=== PATIENT | female | born 1945 | race Caucasian/White ===

== ENCOUNTER 2016-09-04 08:01 | Outpatient (CLI) | payer MEDICARE, OTHER | END 2016-09-04 08:02 | disposition home or self-care (01) | DX: Z12.31 Encounter for screening mammogram for malignant neoplasm of breast (principal); R73.01 Impaired fasting glucose; E78.2 Mixed hyperlipidemia; E83.52 Hypercalcemia; E03.9 Hypothyroidism, unspecified | CPT/HCPCS: 36415; 80053; 80061; 83036; 83970; 84436; 84439; 84443; 85025; G0202 ==

== ENCOUNTER 2016-09-05 08:00 | Outpatient (CLI) | payer MEDICARE, OTHER | END 2016-09-05 23:59 | disposition home or self-care (01) | DX: E78.2 Mixed hyperlipidemia (principal); R73.01 Impaired fasting glucose; E83.52 Hypercalcemia; E03.9 Hypothyroidism, unspecified ==

== ENCOUNTER 2017-09-15 08:06 | Outpatient (CLI) | payer MEDICARE, OTHER ==
[2017-09-15 08:45] LABS: HEMOGLOBIN A1C 0.62 g/dL; HEMOGLOBIN A1C % 6.2 % (4.6-6.2)
[2017-09-15 09:08] LABS: ALBUMIN 4.5 g/dL (3.2-5.5); ALBUMIN/GLOBULIN RATIO 1.3 (1.0-2.2); ALKALINE PHOSPHATASE 41 IU/L (42-121); ALT ALANINE AMINOTRANSFERASE 31 IU/L (10-60); AST ASPARTATE AMINOTRANSFERASE 29 IU/L (10-42); BILIRUBIN,TOTAL 0.7 mg/dL (0.2-1.0); BUN - BLOOD UREA NITROGEN 15 mg/dL (6-20); CALCIUM 9.4 mg/dL (8.5-10.3); CARBON DIOXIDE - CO2 27 mmol/L (21-32); CHLORIDE 100 mmol/L (101-111); CHOL/HDL RATIO 3.4 (<4.4); CHOLESTEROL 163 mg/dL; CREATININE 0.9 mg/dL (0.4-1.0); GFR - MDRD 61 (>89); GLUCOSE 106 mg/dL (70-100); HDL CHOLESTEROL 48 mg/dL; LDL CHOLESTEROL,CALCULATED 43 mg/dL; LDL/HDL RATIO 0.9 (<4.4); SODIUM 136 mmol/L (135-145); TOTAL PROTEIN 7.9 g/dL (6.7-8.2); VLDL CHOLESTEROL 72 mg/dL
== END 2017-09-15 08:07 | disposition home or self-care (01) ==
LOC: LAB 08:06
PROVIDERS: ATTEND Physician Assistant
DX: Z79.899 Other long term (current) drug therapy (principal); N18.2 Chronic kidney disease, stage 2 (mild); E78.2 Mixed hyperlipidemia; R73.01 Impaired fasting glucose; E03.9 Hypothyroidism, unspecified
CPT/HCPCS: 36415; 80053; 80061; 83036; 83721; 84443

== ENCOUNTER 2017-10-08 11:38 | Outpatient (CLI) | payer MEDICARE, OTHER ==
--- NOTE | 2017-10-09 09:30 | Mammography Report ---
DIGITAL SCREENING MAMMOGRAM: 10/08/2017 HISTORY: Prior history of benign biopsy. TECHNIQUE: Bilateral digital CC and MLO projections. COMPARISON: 09/04/2016, 02/21/2014, 03/15/2012, 02/25/2012, 02/19/2011 and . FINDINGS: There is extensive fatty replacement of the breast tissue. There is a tiny asymmetric density in the 3 o'clock position of the left breast and in the 10 o' clock position of the right breast, which are gradually more apparent over a series of mammograms. While these may represent a superimposition of structures, further evaluation with bilateral spot compression and true lateral views is suggested with possible ultrasound as needed. No suspicious microcalcifications, architectural distortion, skin thickening or other interval change. IMPRESSION: SUGGEST FURTHER EVALUATION OF EACH BREAST FOR FAINT NODULAR DENSITIES. BI-RADS 0-INCOMPLETE. STANDARD QUALIFYING STATEMENTS: 1. This examination was reviewed with the aid of Computer-Aided Detection (CAD) . 2. A negative or benign imaging report should not delay biopsy if clinically suspicious findings are present. Consider surgical consultation if warranted. More than 5 % of cancers are not identified by imaging. 3. Dense breasts may obscure an underlying neoplasm. TD: 10/09/2017 09:28 KATERIN
== END 2017-10-08 11:39 | disposition home or self-care (01) ==
LOC: DI 11:38
PROVIDERS: ATTEND Physician Assistant
DX: Z12.31 Encounter for screening mammogram for malignant neoplasm of breast (principal); R92.8 Other abnormal and inconclusive findings on diagnostic imaging of breast
CPT/HCPCS: 77067

== ENCOUNTER 2017-10-28 08:56 | Outpatient (CLI) | payer MEDICARE, OTHER ==
--- NOTE | 2017-10-28 14:12 | Ultrasound Report ---
LEFT BREAST ULTRASOUND: 10/28/2017 CLINICAL INDICATION: Possible nodule on diagnostic mammogram. FINDINGS: Ultrasound of the outer left breast was performed. Unremarkable parenchymal lobules are seen. No discrete solid or cystic mass is appreciated. No sonographically suspicious findings are present. IMPRESSION: NEGATIVE EXAMINATION. RECOMMENDATION: Routine annual screening unless otherwise clinically indicated. BIRADS CATEGORY 1-NEGATIVE. TD: 10/28/2017 14:11
--- NOTE | 2017-10-28 14:23 | Mammography Report ---
DIAGNOSTIC DIGITAL BILATERAL MAMMOGRAM: 10/28/2017. CLINICAL INDICATION: Possible nodules on screening. TECHNIQUE: Bilateral true lateral and spot compression views. COMPARISON: 10/08/2017, 09/04/2016, 02/21/2014, 03/15/2012, 02/25/2012, 2010, 12/24/2009. FINDINGS: The breasts again demonstrate fatty replacement bilaterally. Punctate, typically benign calcifications are present. The density originally seen in the right breast dissipates completely on additional compression. The density in the left breast, partially dissipates on additional compression. Please also refer to left breast ultrasound of the same day. IMPRESSION: BENIGN FINDINGS. RECOMMENDATION: Routine annual screening unless otherwise clinically indicated. BIRADS CATEGORY 2 - BENIGN FINDINGS. STANDARD QUALIFYING STATEMENTS 1. This examination was reviewed with the aid of Computed Aided Detection (CAD). 2. A negative x-ray report should not delay biopsy if a dominant or clinically suspicious mass is present. More than 5% of cancers are not identified by x-ray. 3. Dense breasts may obscure an underlying neoplasm. TD: 10/28/2017 14:22 KATERIN
== END 2017-10-28 08:57 | disposition home or self-care (01) ==
LOC: DI 08:56
PROVIDERS: ATTEND Physician Assistant
DX: R92.8 Other abnormal and inconclusive findings on diagnostic imaging of breast (principal)
CPT/HCPCS: 76642; 77066

== ENCOUNTER 2018-10-29 07:50 | Outpatient (CLI) | payer MEDICARE, OTHER ==
[2018-10-29 08:19] LABS: ALBUMIN 4.2 g/dL (3.2-5.5); ALKALINE PHOSPHATASE 38 IU/L (42-121); ALT ALANINE AMINOTRANSFERASE 22 IU/L (10-60); AST ASPARTATE AMINOTRANSFERASE 24 IU/L (10-42); BILIRUBIN,TOTAL 0.7 mg/dL (0.2-1.0); BUN - BLOOD UREA NITROGEN 18 mg/dL (6-20); CALCIUM 9.3 mg/dL (8.5-10.3); CARBON DIOXIDE - CO2 28 mmol/L (21-32); CHLORIDE 99 mmol/L (101-111); CHOL/HDL RATIO 2.9 (<4.4); CHOLESTEROL 143 mg/dL; CK- CREATINE KINASE 87 IU/L (22-269); CREATININE 0.9 mg/dL (0.4-1.0); GFR - MDRD 61 (>89); GLUCOSE 108 mg/dL (70-100); HDL CHOLESTEROL 50 mg/dL; LDL CHOLESTEROL,CALCULATED 32 mg/dL; LDL/HDL RATIO 0.6 (<4.4); SODIUM 135 mmol/L (135-145); TOTAL PROTEIN 8.4 g/dL (6.7-8.2); VLDL CHOLESTEROL 61 mg/dL
[2018-10-29 08:38] LABS: BASOPHILS # (AUTO) 0.1 10^3/uL (0.0-0.1); EOSINOPHILS # (AUTO) 0.3 10^3/uL (0.0-0.7); HGB - HEMOGLOBIN 12.3 g/dL (12.0-16.0); LYMPHOCYTES % (AUTO) 37.7 %; MEAN CORPUSCULAR HEMOGLOBIN 31.6 pg (27.0-31.0); MEAN CORPUSCULAR HGB CONC 33.1 g/dL (32.0-36.0); MEAN CORPUSCULAR VOLUME 95.5 fL (81.0-99.0); MEAN PLATELET VOLUME 9.7 fL (7.9-10.8); MONOCYTES # (AUTO) 0.5 10^3/uL (0.0-1.0); MONOCYTES % (AUTO) 8.5 %; NEUTROPHILS # (AUTO) 2.6 10^3/uL (1.5-6.6); NEUTROPHILS % (AUTO) 47.8 %; PLT - PLATELET COUNT 211 10^3/uL (130-450); RED CELL DISTRIBUTION WIDTH 12.9 % (12.0-15.0); WHITE BLOOD COUNT 5.4 x10^3/uL (4.8-10.8)
[2018-10-29 13:13] LABS: BILIRUBIN,URINE NEGATIVE (NEGATIVE); GLUCOSE, URINE (UA) NEGATIVE (NEGATIVE); KETONES,URINE (UA) NEGATIVE (NEGATIVE); LEUKOCYTE ESTERASE, URINE NEGATIVE (NEGATIVE); NITRITE,URINE NEGATIVE (NEGATIVE); OCCULT BLOOD,URINE NEGATIVE (NEGATIVE); PROTEIN,URINE NEGATIVE (NEGATIVE); UROBILINOGEN,URINE 0.2 (NORMAL) E.U./dL (NORMAL)
[2018-10-29 13:16] LABS: CLARITY,URINE CLEAR (CLEAR)
[2018-11-01 07:28] LABS: HEMOGLOBIN A1C 0.55 g/dL
== END 2018-10-29 07:51 | disposition home or self-care (01) ==
LOC: LAB 07:50
PROVIDERS: ATTEND Internal Medicine
DX: C44.90 Unspecified malignant neoplasm of skin, unspecified (principal); R73.01 Impaired fasting glucose; K21.9 Gastro-esophageal reflux disease without esophagitis; Z79.899 Other long term (current) drug therapy; J45.909 Unspecified asthma, uncomplicated; I10 Essential (primary) hypertension; E78.5 Hyperlipidemia, unspecified; E03.9 Hypothyroidism, unspecified
CPT/HCPCS: 36415; 80053; 80061; 81001; 81003; 82550; 83036; 83721; 84443; 85025; 87086

== ENCOUNTER 2018-11-26 13:09 | Outpatient (CLI) | payer MEDICARE, OTHER ==
--- NOTE | 2018-11-30 14:09 | Mammography Report ---
Reason: SCREENING MAMMO Procedure Date: 11/26/2018 Accession Number: [id number] / [id number] Procedure: [facility] - Screening Mammo w/Juan Antonio CPT Code: FULL RESULT: EXAM: Screening Mammo w/Juan Antonio DATE: 11/26/2018 1:59 PM CLINICAL HISTORY: Screening mammography TECHNIQUE: (B) - Bilateral CC and MLO views were obtained. COMPARISON: 10/28/2017, 10/08/2017, 09/04/2016, 02/21/2014 and 02/25/2012. PARENCHYMAL PATTERN: (A) - The breasts demonstrate scattered fibroglandular densities bilaterally. FINDINGS: Nodular densities in both breasts are similar to previous. There are no suspicious masses, calcifications, or areas of distortion. IMPRESSION: Negative examination. BI-RADS category 1. RECOMMENDATION: (ANNUAL) - Recommend routine annual screening mammography. BI-RADS CATEGORY: (1) - Negative. STANDARD QUALIFYING STATEMENTS: 1. This examination was not reviewed with the aid of Computer-Aided Detection (CAD). 2. A negative or benign imaging report should not preclude biopsy if clinically suspicious findings are present. 3. Dense breasts may obscure an underlying neoplasm. 4. This examination was reviewed with the aid of 3D breast imaging (tomosynthesis).
== END 2018-11-26 13:10 | disposition home or self-care (01) ==
LOC: DI 13:09
PROVIDERS: ATTEND Internal Medicine
DX: Z12.31 Encounter for screening mammogram for malignant neoplasm of breast (principal)
CPT/HCPCS: 77063; 77067

== ENCOUNTER 2019-09-14 12:30 | Emergency (ER) | payer MEDICARE, OTHER ==
[2019-09-14] MEDS ORDERED: DEXAMETHASONE 10 MG/ML VIAL IV STA (13:28)
--- NOTE | 2019-09-14 13:31 | ED Physician Documentation ---
History of Present Illness - Stated complaint Stated Complaint: SWOLLEN TONGUE AND THROAT - Chief complaint Chief Complaint: Heent - History obtained from History obtained from: Patient, Family - Additonal information Additional information: Patient complains of swelling of her right neck and tongue, as well as somewhat the left side of her tongue that she noticed this morning when she woke up. Pat ient states that it does not seem to have progressed throughout the day, but has not gotten better. Patient states that it is mechanically somewhat more difficult for her to speak secondary to the swelling, though this is improved over the course of the day. Patient states that she is never had this happen before. She does not have any pain in the area. She does not have any teeth that are bothering her. The patient does take lisinopril for hypertension. She is never had this happen previously. Patient states she is otherwise been well, though she has been under a lot of stress lately. No other complaints at this time. Review of Systems Ten Systems: 10 systems reviewed and negative Constitutional: reports: Reviewed and negative Eyes: reports: Reviewed and negative Ears: reports: Reviewed and negative Nose: reports: Reviewed and negative Throat: reports: Other (Tongue swelling) Cardiac: reports: Reviewed and negative Respiratory: reports: Reviewed and negative GI: reports: Reviewed and negative : reports: Reviewed and negative Skin: reports: Reviewed and negative Musculoskeletal: reports: Reviewed and negative Neurologic: reports: Reviewed and negative Psychiatric: reports: Reviewed and negative Endocrine: reports: Reviewed and negative Immunocompromised: reports: Reviewed and negative PD PAST MEDICAL HISTORY - Past Medical History Cardiovascular: Hypertension, High cholesterol Respiratory: Asthma HEENT: None Psych: None Derm: None - Past Surgical History Past Surgical History: Yes General: Appendectomy, Other Ortho: Other HEENT: Other - Present Medications Home Medications: Ambulatory Orders Medication Instructions Recorded Confirmed Albuterol [Ventolin Hfa] 1 puffs INH QID PRN 01/06/15 06/18/16 Aspirin 1 tab PO DAILY 01/06/15 06/18/16 Calcium Carb/Vitamin D3/Vit K1 1 tab PO BID 01/06/15 06/18/16 [Citracal Soft Chew] Fluticasone [Flonase] 1 puffs INH DAILY 01/06/15 06/18/16 Levothyroxine [Synthroid] 1 tab PO DAILY 01/06/15 06/18/16 Metoprolol Tartrate 1 tab PO DAILY 01/06/15 06/18/16 Multivit-Min/Iron/Folic/Lutein 1 tab PO DAILY 01/06/15 06/18/16 [Centrum Silver Women Tablet] Rosuvastatin Calcium [Crestor] 1 tab PO DAILY 01/06/15 06/18/16 raNITIdine [Zantac] 1 tab PO DAILY 01/06/15 06/18/16 Fluticasone/Salmeterol [Advair 1 puffs INH BID 06/04/16 06/18/16 100-50 Diskus] - Allergies Allergies/Adverse Reactions: Allergies Allergy/AdvReac Type Severity Reaction Status Date / Time ranitidine Allergy Unknown Verified 09/14/19 12:51 Sulfa (Sulfonamide Allergy Hives Verified 09/14/19 12:50 Antibiotics) - Social History Does the pt smoke?: No Smoking Status: Never smoker Does the pt drink ETOH?: No Does the pt have substance abuse?: No - Immunizations Immunizations: TDAP current <10years PD ED PE NORMAL - Vitals Vital signs reviewed: Yes - General General: Alert and oriented X 3, No acute distress - HEENT HEENT: Atraumatic, PERRL, EOMI, Moist mucous membranes, Other (Patient has moderate edema of the floor of her mouth and the inferior portion and sides of her tongue bilaterally. Her throat is clear, And without edema.) - Neck Neck: Supple, no meningeal sign, Other (Patient has mild edema of the right anterior superior neck, which is soft. No distinct edema or firmness or enlargement of the submandibular gland is noted. There is mild lymphadenopathy on the right anterior cervical area. No erythema or induration.) - Cardiac Cardiac: RRR, No murmur - Respiratory Respiratory: Clear bilaterally - Abdomen Abdomen: Normal bowel sounds, Soft, Non tender, Non distended - Derm Derm: Warm and dry - Extremities Extremities: No deformity - Neuro Neuro: Alert and oriented X 3 - Psych Psych: Normal mood, Normal affect Results - Vitals Vitals: Vital Signs - 24 hr 09/14/19 09/14/19 09/14/19 12:44 15:45 18:00 Temperature 36.7 C Heart Rate 106 H 99 78 Respiratory 16 16 16 Rate Blood Pressure 180/70 H 176/73 H 178/88 H O2 Saturation 97 98 96 09/14/19 09/14/19 20:30 22:24 Temperature Heart Rate 101 H 98 Respiratory 18 18 Rate Blood Pressure 154/87 H 133/58 H O2 Saturation 97 97 Oxygen O2 Source Room air - Labs Labs: Laboratory Tests 09/14/19 09/14/19 13:35 13:35 WBC 5.6 RBC 2.46 L Hgb 8.0 L Hct 24.5 L MCV 99.6 H MCH 32.5 H MCHC 32.7 RDW 12.3 Plt Count 151 MPV 10.7 Neut # (Auto) 3.6 Lymph # (Auto) 1.5 [place] # (Auto) 0.4 Eos # (Auto) 0.1 Baso # (Auto) 0.0 Absolute Nucleated RBC 0.00 Nucleated RBC % 0.0 Sodium 134 L Potassium 4.8 Chloride 99 L Carbon Dioxide 21 Anion Gap 14.0 H BUN 77 H Creatinine 6.9 H Estimated GFR (MDRD) 6 L Glucose 95 Calcium 9.2 Total Bilirubin 0.6 AST 18 ALT 15 Alkaline Phosphatase 26 L Total Protein 9.1 H Albumin 3.7 Globulin 5.4 H Albumin/Globulin Ratio 0.7 L - Rads (name of study) CT neck Radiology: Final report received, Discussed with rads, See rad report PD MEDICAL DECISION MAKING - ED course Complexity details: reviewed results, re-evaluated patient, considered differential, d/w patient, d/w family, d/w media consultant outside sales ED course: The pt was given IV Decadron, after which she reported feeling quite a bit better. She was worked up with labs, initially, in order to clear her for IV contrast for her CT neck. However, the pt was found to have severe renal failure, with BUN 77, Cr 6.9, and GFR 6. I did ask pt if she had any known history of renal issues of any kind, and pt stated she did not. The pt stated that she does make urine, but did admit that she was not really thinking about drinking much water over the past couple of days, with her 's illness. I felt it was unlikely that dehydration could account for the majority of the renal failure, but I did start the pt on NS 1 L boluses in the ED, which the pt tolerated well. Pt's CT had to be done without contrast, and radiologist reported to me that the pt had a large R thyroid mass causing some laryngeal deviation, as well as edema throughout the structures of her R pharynx/hypopharynx and possibly, a pharyngeal mass. I spoke with Dr. Dinero, the hospitalist on duty at [facility], and Dr. Goff, the ENT specialist chimney construction supervisor. I did review with Dr. Goff the pt's history, clinical presentation, and findings, and he felt the pt was unlikely to need emergent ENT intervention in the hospital. He did state that his service would be happy to consult and advise while the pt was admitted at [facility], and that if her renal function could be improved enough, a CT with contrast would be helpful. Dr. Dinero was willing to accept the pt in transfer if ENT was agreeable, and transfer arrangements were made. Plan was discussed with pt and daughter. Pt remained stable throughout her stay in the ED. Departure - Departure Disposition: 02 Transfer Acute Care Hosp Clinical Impression: Acute renal failure, Thyroid mass, Edema of pharynx or nasopharynx Condition: Serious Discharge Date/Time: 09/14/19 22:34
[2019-09-14 13:42] LABS: BASOPHILS % (AUTO) 0.5 %; EOSINOPHILS # (AUTO) 0.1 10^3/uL (0.0-0.7); EOSINOPHILS % (AUTO) 1.6 %; LYMPHOCYTES # (AUTO) 1.5 10^3/uL (1.5-3.5); MEAN CORPUSCULAR HEMOGLOBIN 32.5 pg (27.0-31.0); MEAN CORPUSCULAR HGB CONC 32.7 g/dL (32.0-36.0); MEAN CORPUSCULAR VOLUME 99.6 fL (81.0-99.0); MEAN PLATELET VOLUME 10.7 fL (7.9-10.8); MONOCYTES # (AUTO) 0.4 10^3/uL (0.0-1.0); MONOCYTES % (AUTO) 6.3 %; NEUTROPHILS # (AUTO) 3.6 10^3/uL (1.5-6.6); NEUTROPHILS % (AUTO) 65.1 %; PLT - PLATELET COUNT 151 10^3/uL (130-450); RED BLOOD COUNT 2.46 10^6/uL (4.20-5.40); RED CELL DISTRIBUTION WIDTH 12.3 % (12.0-15.0); WHITE BLOOD COUNT 5.6 x10^3/uL (4.8-10.8)
[2019-09-14 13:58] LABS: ALBUMIN 3.7 g/dL (3.2-5.5); ALBUMIN/GLOBULIN RATIO 0.7 (1.0-2.2); BILIRUBIN,TOTAL 0.6 mg/dL (0.2-1.0); CALCIUM 9.2 mg/dL (8.5-10.3); CREATININE 6.9 mg/dL (0.4-1.0); TOTAL PROTEIN 9.1 g/dL (6.7-8.2)
[2019-09-14] MEDS ORDERED: IOVERSOL 320 100 ML VIAL IVP ONE (14:39)
[2019-09-14] MEDS ORDERED: SODIUM CHLORIDE 0.9% 1,000 ML IV ONE ×2 (15:13→20:30)
--- NOTE | 2019-09-14 15:47 | CT Report ---
Reason: swelling Procedure Date: 09/14/2019 Accession Number: [id number] / [id number] Procedure: CT - SOFT TISSUE NECK WO CPT Code: Final Report FULL RESULT: EXAM: CT SOFT TISSUE NECK WITHOUT CONTRAST. EXAM DATE: 09/14/2019 03:17 PM. HISTORY: Swelling. Neck and tongue swelling today. COMPARISONS: CT ORBITS W/ 01/06/2015 10:59 AM. TECHNIQUE: Routine soft tissue neck CT protocol without contrast. Reconstructions: Coronal and sagittal. IV contrast: None. In accordance with CT protocol optimization, one or more of the following dose reduction techniques were utilized for this exam: automated exposure control, adjustment of mA and/or KV based on patient size, or use of iterative reconstructive technique. FINDINGS: Visualized Intracranial Contents: Unremarkable. Orbits: Partially visualized orbits are unremarkable. Note is made of bilateral lens removal. There is questionable mild soft tissue swelling in the right inferior eyelid. Sinuses: Postoperative change from medial antral window procedure and ethmoidectomy is noted. Opacification is seen in the anterior ethmoid surgical bed and frontoethmoidal recess. Mild dependent mucosal thickening is seen in the sphenoid sinuses bilaterally. Opacification is seen involving inferior right mastoid air cells. Oral cavity: Metallic artifact from dentition partially obscures the oral cavity. The floor of the mouth is symmetric. Pharynx: Asymmetric mucosal and submucosal thickening is noted in the right lateral pharynx and hypopharynx. Subtle extension into the inferior posterior floor of the mouth and submandibular space is likely present. There may be subtle mild retropharyngeal space edema in the lower pharynx and larynx region. The infratemporal fossa and parapharyngeal spaces are unremarkable. The base of the tongue is symmetric and unremarkable. The airway is patent. Larynx: Extrinsic deviation of the trachea from right to left is seen secondary to large right thyroid mass. Larynx and supraglottic airway are patent without mass lesion. Vocal cords are symmetric. Effacement and left lateral deviation of the proximal trachea is seen. Subtle mild narrowing of the trachea in the coronal plane is seen. No tracheal invasion by adjacent thyroid mass is seen. Parotid and Submandibular Glands: There is mild inferior lateral displacement of the right submandibular gland. No intrinsic density abnormality is seen within submandibular or parotid glands. Lymph Nodes: No enlarged lymph nodes are identified in the cervical, supraclavicular, and visualized superior mediastinal regions. Soft tissues: Mild fascial plane edema is seen in the right submandibular space. No mass lesion is seen. Vascular Structures: Unremarkable on noncontrast evaluation. Scattered atherosclerotic calcification is seen at the aortic arch and great vessels off the arch. Mild atherosclerotic calcification is seen at the carotid bifurcation in the neck. Thyroid Gland: Lobular heterogeneous enlargement with punctate calcification is seen involving the right lobe. This measures 82 x 57 x 54 mm in size. Localized mass effect is seen. Lung: The visualized lung apices are clear. Bones: Mild spondylolisthesis is seen at C6-C7. Mild cervical spondylosis is noted. Moderate degenerative change is seen in the left TMJ. Other: None. IMPRESSION: 1. Large heterogeneous mass in the right lobe of the thyroid gland. This extends into the superior mediastinum. This measures 82 x 57 x 54 mm. Localized mass effect is seen on the larynx and proximal trachea without invasion. This could be further evaluated with thyroid ultrasound. 2. Masslike isodensity and hypodensity in the right lateral pharynx and hypopharynx. Inflammatory change extends into the right submandibular space. Subtle mild retropharyngeal space edema is seen. Localized inflammatory process and pharyngitis could be considered as well. Correlation with direct visualization would be of value. RADIA The call report notification system was initiated by Dr. Carlton Rutherford at 03:38 PM on 09/14/2019. The above call report findings were discussed with Dr. Mlei Ramírez by Dr. Carlton Rutherford at 03:43 PM on 09/14/2019.
[2019-09-14 22:25] VITALS: BP 133/58
== END 2019-09-14 22:34 | disposition short-term general hospital (02) ==
LOC: ED 12:30
DX: N17.9 Acute kidney failure, unspecified (principal); E04.1 Nontoxic single thyroid nodule; J39.2 Other diseases of pharynx; I10 Essential (primary) hypertension
CPT/HCPCS: 36415; 70490; 80053; 85025; 96361; 96374; 99285

== ENCOUNTER 2019-09-14 22:38 | Outpatient (CLI) | payer MEDICARE, OTHER | END 2019-09-14 23:59 | disposition short-term general hospital (02) | LOC: EMS 22:38 | PROVIDERS: ATTEND Surgery | DX: N17.9 Acute kidney failure, unspecified (principal); R22.1 Localized swelling, mass and lump, neck | CPT/HCPCS: A0425; A0426 ==

== ENCOUNTER 2019-10-05 10:30 | Outpatient (CLI) | payer MEDICARE, OTHER ==
--- NOTE | 2019-10-05 11:26 | Ultrasound Report ---
Reason: MULTIPLE MYELOMA Procedure Date: 10/05/2019 Accession Number: [id number] / [id number] Procedure: US - Head or Neck Soft Tissue CPT Code: Addended Final Report FULL RESULT: EXAM: THYROID ULTRASOUND EXAM DATE: 10/05/2019 11:09 AM. CLINICAL HISTORY: 74-year-old with history of multiple myeloma. Thyroid nodule seen on previous CT. COMPARISON: Noncontrast neck CT from 09/14/2019. TECHNIQUE: Real time sonographic imaging of the thyroid was performed by the sheet music salesperson. Multiple insurance sales representative static images were saved for review. FINDINGS: THYROID GLAND: Right Lobe: 7.1 x 3.2 x 5.6 cm, volume 66.5 cc. Essentially the entire lobe is replaced by a large nodule. Right Lobe Nodules: Large, heterogeneous, solid nodule measures 7.1 x 3.2 x 5.6 cm. It demonstrates small cystic components. Areas of calcification are demonstrated on previous CT but are not well appreciated by ultrasound. Left Lobe: 3.0 x 1.0 x 1.0 cm, volume 1.6 cc. Normal background echotexture. Left Lobe Nodules: None. Isthmus: 0.3 cm AP. Normal background echotexture. Isthmic Nodules: None. LYMPH NODES: No adenopathy demonstrated in the central or lateral compartment. OTHER: There is nonocclusive thrombus in the right internal jugular vein. Visualized right subclavian vein is patent. IMPRESSION: 1. Large, 7.1 cm, predominantly solid right thyroid nodule essentially replaces the right thyroid lobe. The sonographic features are considered low suspicion for neoplasm; however, it is well above size threshold for biopsy. Consider fine-needle aspiration. 2. Unremarkable sonographic appearance of the remainder of the thyroid gland. 3. Nonocclusive thrombus in the right internal jugular vein. Management recommendations are based on 2015 [place] [employer] Management Guidelines for Adult Patients with Thyroid Nodules and Differentiated Thyroid Cancer. RADIA The call report notification system was initiated by Dr. Morteza Zavala at 11:18 AM on 10/05/2019. ADDENDUM: 10/05/19 13:13 Multiple unsuccessful attempts were made to reach the ordering provider by phone. However, according to the sheet music salesperson, Dr. Dowell is on-site at [facility] and has been notified of the findings. ADDENDUM: 10/05/19 13:[address] Dowell by Dr. Zavala at approximately 1:29 PM on 10/05/2019. Patient has reported history of right IJ catheter, and given mildly echogenic and nonocclusive nature of thrombus, suspect represents subacute thrombus related to previous catheter.
== END 2019-10-05 10:31 | disposition home or self-care (01) ==
LOC: DI 10:30
PROVIDERS: ATTEND Internal Medicine
DX: C90.00 Multiple myeloma not having achieved remission (principal); E04.1 Nontoxic single thyroid nodule; I82.C11 Acute embolism and thrombosis of right internal jugular vein
CPT/HCPCS: 76536

== ENCOUNTER 2019-11-01 09:10 | Outpatient (CLI) | payer MEDICARE, OTHER | END 2019-11-01 09:11 | disposition home or self-care (01) | LOC: LAB 09:10 | PROVIDERS: ATTEND Internal Medicine | DX: N17.9 Acute kidney failure, unspecified (principal) | CPT/HCPCS: 84100 ==

== ENCOUNTER 2019-11-16 10:22 | Outpatient (CLI) | payer MEDICARE, OTHER ==
[2019-11-16 10:53] LABS: CREATININE 1.2 mg/dL (0.4-1.0); PHOSPHORUS 4.3 mg/dL (2.5-4.6)
[2019-11-16 11:11] LABS: BILIRUBIN,URINE NEGATIVE (NEGATIVE); GLUCOSE, URINE (UA) NEGATIVE (NEGATIVE); KETONES,URINE (UA) NEGATIVE (NEGATIVE); LEUKOCYTE ESTERASE, URINE NEGATIVE (NEGATIVE); NITRITE,URINE NEGATIVE (NEGATIVE); OCCULT BLOOD,URINE NEGATIVE (NEGATIVE); PROTEIN,URINE NEGATIVE (NEGATIVE); UROBILINOGEN,URINE 0.2 (NORMAL) E.U./dL (NORMAL)
[2019-11-16 11:12] LABS: CLARITY,URINE CLEAR (CLEAR)
[2019-11-16 11:17] LABS: CREATININE,URINE 31.7 mg/dL; MICROALBUM/CREATININE RATIO,UR 22.1 ug/mg (<30.0); MICROALBUMIN,URINE 0.7 mg/dL (0-300.0)
[2019-11-16 11:30] LABS: BACTERIA,URINE Rare /HPF (None Seen); RBC,URINE 0-5 /HPF (0-5); SQUAMOUS EPITHELIAL CELL,UR RARE Squamous (<= Few)
== END 2019-11-16 10:23 | disposition home or self-care (01) ==
LOC: LAB 10:22
PROVIDERS: ATTEND Internal Medicine Nephrology
DX: N17.9 Acute kidney failure, unspecified (principal)
CPT/HCPCS: 36415; 80048; 81001; 82043; 82570; 84100

== ENCOUNTER 2019-12-07 09:33 | Outpatient (CLI) | payer MEDICARE, OTHER ==
[2019-12-07 10:10] LABS: CALCIUM 8.8 mg/dL (8.5-10.3); CREATININE 1.3 mg/dL (0.4-1.0)
== END 2019-12-07 09:34 | disposition home or self-care (01) ==
LOC: LAB 09:33
PROVIDERS: ATTEND Internal Medicine Nephrology
DX: N17.9 Acute kidney failure, unspecified (principal); I13.10 Hypertensive heart and chronic kidney disease without heart failure, with stage 1 through stage 4 chronic kidney disease, or unspecified chronic kidney disease; M79.89 Other specified soft tissue disorders
CPT/HCPCS: 36415; 80048; 83735

== ENCOUNTER 2020-08-15 11:22 | Emergency (ER) | payer MEDICARE, OTHER ==
--- NOTE | 2020-08-15 12:03 | ED Physician Documentation ---
History of Present Illness - Stated complaint Stated Complaint: HIGH PULSE - Chief complaint Chief Complaint: Cardiac - Additonal information Additional information: 75-year-old female presents to the emergency department for evaluation of sh ortness of air as well as a rapid heart rate. She has a history of multiple myeloma and presented to the [facility] today for her weekly dose of chemotherapy. While there they noted that she appeared short of breath and had a heart rate in the 160s. On presentation here to the emergency department she is noted to be in atrial fibrillation though her rate is 10. She reports feeling anxious and has developed a little bit of left sided pain under her breast. Over the last week she has sometimes felt lightheaded and dizzy. no syncope or falls She denies any previous history of atrial fibrillation. She does have a history of chronic kidney disease secondary to multiple myeloma and did require hemodialysis for a short time but has not required dialysis since October of this year. She also has a history of a right IJ venous thrombosis which was thought to be secondary to her dialysis catheter. However she has been off Eliquis since December 2019. Review of Systems Constitutional: denies: Fever, Chills Eyes: reports: Reviewed and negative Ears: reports: Reviewed and negative Nose: reports: Reviewed and negative Cardiac: reports: Chest pain / pressure, Palpitations. denies: Pedal edema, Calf pain Respiratory: reports: Dyspnea. denies: Cough, Hemoptysis, Wheezing GI: denies: Abdominal Pain, Abdominal Swelling, Nausea, Vomiting : denies: Dysuria, Frequency Skin: denies: Rash, Lesions Musculoskeletal: denies: Neck pain, Back pain Neurologic: reports: Reviewed and negative Psychiatric: reports: Reviewed and negative PD PAST MEDICAL HISTORY - Past Medical History Cardiovascular: Hypertension, High cholesterol Respiratory: Asthma Endocrine/Autoimmune: HyPERthyroidism HEENT: None Psych: None Derm: None - Past Surgical History Past Surgical History: Yes General: Appendectomy, Other Ortho: Other HEENT: Other - Present Medications Home Medications: Ambulatory Orders Medication Instructions Recorded Confirmed Albuterol [Ventolin Hfa] 1 puffs INH QID PRN 01/06/15 08/08/20 Fluticasone [Flonase] 1 puffs INH BID 01/06/15 08/08/20 Levothyroxine [Synthroid] 25 - 50 mcg PO DAILY 01/06/15 08/08/20 Metoprolol Tartrate 50 mg PO DAILY 01/06/15 08/08/20 Multivit-Min/Iron/Folic/Lutein 1 tab PO DAILY 01/06/15 08/08/20 [Centrum Silver Women Tablet] Rosuvastatin Calcium [Crestor] 10 mg PO DAILY 01/06/15 08/08/20 Fluticasone/Salmeterol [Advair 1 puffs INH BID 06/04/16 08/08/20 100-50 Diskus] Acetaminophen [Tylenol Arthritis] 650 mg PO BID 10/03/19 08/08/20 Atovaquone 1,500 mg PO DAILY 30 Days #300 ml 10/03/19 08/08/20 B-Complex with Vitamin C [Super B 1 tab PO DAILY 10/03/19 08/08/20 Complex-Vitamin C] Cholecalciferol (Vitamin D3) 25 mcg PO DAILY 10/03/19 08/08/20 [Vitamin D3] Famotidine [Pepcid AC] 10 mg PO DAILY 10/03/19 08/08/20 Fluocinonide/Emollient Base 1 applic TD DAILY PRN 10/03/19 08/08/20 [Fluocinonide-E 0.05% Cream] estradioL [Estrace] 1 - 2 gr VG DAILY PRN 10/03/19 08/08/20 Lisinopril [Prinivil] 5 mg PO DAILY 02/21/20 08/08/20 Lenalidomide [Revlimid] 10 mg PO DAILY 03/01/20 08/08/20 amLODIPine [Norvasc] 2.5 mg PO DAILY 03/07/20 08/08/20 LORazepam [Ativan] 0.5 mg PO Q12H PRN #30 tablet 05/02/20 08/08/20 dexAMETHasone [Decadron] 40 mg PO ONCE 07/18/20 08/08/20 dexAMETHasone [Decadron] 20 mg PO ONCE #20 tablet 07/25/20 08/08/20 Acyclovir [Zovirax] 400 mg PO Q12H 30 Days #60 tab 08/15/20 Apixaban [Eliquis] 5 mg PO BID #60 tab 08/15/20 Metoprolol Succinate [Toprol Xl] 25 mg PO DAILY #30 tab 08/15/20 - Allergies Allergies/Adverse Reactions: Allergies Allergy/AdvReac Type Severity Reaction Status Date / Time ranitidine Allergy Unknown Verified 08/15/20 11:30 Sulfa (Sulfonamide Allergy Hives Verified 08/15/20 11:30 Antibiotics) - Social History Does the pt smoke?: No Smoking Status: Former smoker Does the pt drink ETOH?: No Does the pt have substance abuse?: No - Immunizations Immunizations are current?: Yes Immunizations: TDAP current <10years - POLST Patient has POLST: No PD ED PE EXPANDED - General General: Alert, No acute distress, Anxious - HEENT HEENT: Atraumatic, EOMI - Neck Neck: Supple w/out meningeal sx. No: Adenopathy - Cardiac Cardiac: Irregularly irregular, Radial strong equal, Pedal strong equal, Cap refill < 2 sec. No: Murmur Present - Respiratory Respiratory: Clear to ausultation francisca. No: Distress, Labored - Abdomen Abdomen: Normal Bowel sounds. No: Tender to palpation - Derm Derm: Normal color. No: Warm and dry - Extremities Extremities: Normal. No: Deformity, Tenderness, Pedal edema bilateral, Right calf TTP/cord, Left calf TTP/cord - Neuro Neuro: Alert and Oriented X 3, CNII-XII intact, Normal gait, Normal finger nose, Normal speech. No: Confused, Disoriented - GCS Verbal: Oriented Results - Vitals Vitals: Vital Signs - 24 hr 08/15/20 08/15/20 08/15/20 11:27 12:00 13:20 Temperature 36.0 C L 36.4 C L Heart Rate 164 H 88 76 Respiratory 20 17 7 L Rate Blood Pressure 107/82 H 153/83 H 155/68 H O2 Saturation 99 98 98 08/15/20 08/15/20 13:49 14:10 Temperature 37 C Heart Rate 74 77 Respiratory 14 16 Rate Blood Pressure 153/65 H 150/64 H O2 Saturation 100 99 Oxygen O2 Source Room air - EKG (time done) 1138 Rate: Rate (enter#) (107) Rhythm: Atrial fibrillation Riley: Normal Intervals: No: Prolonged QT (borderline. Unable to assess NM ) Ischemia: Normal ST segments Compare to prior EKG: Old EKG unavailable Computer interpretation: Agree with computer - Labs Labs: Laboratory Tests 08/15/20 08/15/20 08/15/20 11:59 11:59 11:59 WBC 12.6 H RBC 3.41 L Hgb 11.0 L Hct 33.1 L MCV 97.1 MCH 32.3 H MCHC 33.2 RDW 15.1 H Plt Count 181 MPV 12.3 H Neut # (Auto) 10.9 H Lymph # (Auto) 0.8 L Webb # (Auto) 0.5 Eos # (Auto) 0.2 Baso # (Auto) 0.1 Absolute Nucleated RBC 0.00 Nucleated RBC % 0.0 PT INR Sodium 138 Potassium 3.6 Chloride 95 L Carbon Dioxide 25 Anion Gap 18.0 H BUN 28 H Creatinine 1.4 H Estimated GFR (MDRD) 37 L Glucose 137 H Calcium 9.5 Total Bilirubin 1.0 AST 28 ALT 27 Alkaline Phosphatase 60 Troponin I High Sens 11.0 Total Protein 7.3 Albumin 4.3 Globulin 3.0 Albumin/Globulin Ratio 1.4 Lipase 36 TSH 08/15/20 08/15/20 11:59 11:59 WBC RBC Hgb Hct MCV MCH MCHC RDW Plt Count MPV Neut # (Auto) Lymph # (Auto) Webb # (Auto) Eos # (Auto) Baso # (Auto) Absolute Nucleated RBC Nucleated RBC % PT 12.1 INR 1.1 Sodium Potassium Chloride Carbon Dioxide Anion Gap BUN Creatinine Estimated GFR (MDRD) Glucose Calcium Total Bilirubin AST ALT Alkaline Phosphatase Troponin I High Sens Total Protein Albumin Globulin Albumin/Globulin Ratio Lipase TSH 0.41 - Rads (name of study) CXR Radiology: Final report received (No acute process) Angio Chest Radiology: Final report received (No pulmonary embolus found. No pneumonia or pulmonary mass lesion seen. Large right thyroid mass measuring 4.7 x 6.4 x 8.7 cm which has enlarged over time. Tracheal deviation) PD MEDICAL DECISION MAKING - ED course Complexity details: reviewed old records, reviewed results, re-evaluated patient, considered differential, d/w patient ED course: 75-year-old female who has a history of multiple myeloma undergoing active chemotherapy presents to the emergency department from the [facility] for evaluation of the elevated heart rate. For much of the last week she has felt somewhat dizzy and has had a subtle pain under her left chest. On presentation here her initial heart rate was in the 160s but an EKG showed atrial fib with a rate of 107. While here on the monitor in the emergency department her heart rate has typically been in the 70s and 80's. She does have a history of hypertension but no previous history of heart failure or atrial fib. It should be known that she does have a history of previous IJ DVT that was associated with a hemodialysis catheter that did require short-term anticoagulation. She also has a history of chronic kidney disease that for a while required hemodialysis. This was thought to be secondary to multiple myeloma. However her Cr has been stable for quite some time in the 1.3-1.5 range. Screening labs reveal no significant anemia. She does have a mild leukocytosis of 12.6. I suspect this is due to a stress marginalization. Her white count was normal just a few hours previous when drawn at the [facility]. Her kidney function remained stable with a creatinine of 1.4. Thyroid level is normal. She is on levothyroxine supplementation. Chest x-ray showed no acute focal abnormalities. She is not hypoxic or tachypneic. Pulmonary auscultation was unremarkable. Due to the history of previous IJ DVT we did proceed with a CT angio of her chest Did not reveal any pulmonary embolus or masses. However previously known thyroid mass has enlarged over time. There is mild tracheal deviation seen on the CT scan. Again patient has no tachypnea or stridor. She will be referred to ENT for f/u of this mass This is new onset atrial fibrillation. Her CHADS2 VASC score is 6; thus putting her at moderate to high risk for stroke. Patient will be started on Eliquis twice daily. No dose adjustment indicated at this time given creatinine of 1.4 normal creatinine clearance. She also be started on Metroprolol 25 mg once daily to ensure rate control as she did present with a heart rate of 140. Patient advised to follow-up with primary care provider within the next week. She should have not outpatient echocardiogram. Departure - Departure Disposition: 01 Home, Self Care Clinical Impression: Thyroid mass of unclear etiology Atrial fibrillation Qualifiers: Atrial fibrillation type: unspecified Qualified Code(s): I48.91 - Unspecified atrial fibrillation Multiple myeloma Qualifiers: Multiple myeloma remission status: not in remission Qualified Code(s): C90.00 - Multiple myeloma not having achieved remission Instructions: Atrial Fibrillation Dc Follow-Up: Luma Wakefield MD [Primary Care Provider] - Within 3 Days [facility] [Provider Group] Prescriptions: Apixaban [Eliquis] 5 mg PO BID #60 tab Metoprolol Succinate [Toprol Xl] 25 mg PO DAILY #30 tab Comments: June you were seen in the emergency department for an elevated heart rate. You have a heart rhythm called atrial fibrillation. This does put you at increased risk for strokes. We have started you on a medication called Eliquis. You take this twice daily. This is used to help prevent blood clots that can form resulting in strokes. With the Eliquis you are at higher risk for bleeding with minor cuts or falls. If you fall and hit your head, if you develop any suddenly severe headaches, have arm or leg weakness slurred speech or droopy face please return immediately to the emergency department. I have also ordered a new medication called Metroprolol. You take this once daily. This medication is used to keep your heart rate from becoming exceedingly high while you are in atrial fibrillation. The CAT scan of your chest did not show any blood clots. However the mass on your thyroid is larger than it has been in the past. You need to be seen by an ear nose throat surgeon to determine if the mass should be removed surgically. Your thyroid levels were normal today Please see your primary care doctor in follow-up this week. You need to be referred for an outpatient echocardiogram of your heart. If you are unable to see Dr. Wakefield in follow-up please schedule an appointment at [facility]. They are able to see emergency department patients in follow-up and can make the appropriate referrals
[2020-08-15 12:05] LABS: BASOPHILS # (AUTO) 0.1 10^3/uL (0.0-0.1); BASOPHILS % (AUTO) 0.4 %; EOSINOPHILS # (AUTO) 0.2 10^3/uL (0.0-0.7); EOSINOPHILS % (AUTO) 1.3 %; LYMPHOCYTES # (AUTO) 0.8 10^3/uL (1.5-3.5); LYMPHOCYTES % (AUTO) 5.9 %; MEAN CORPUSCULAR HEMOGLOBIN 32.3 pg (27.0-31.0); MEAN CORPUSCULAR HGB CONC 33.2 g/dL (32.0-36.0); MEAN CORPUSCULAR VOLUME 97.1 fL (81.0-99.0); MEAN PLATELET VOLUME 12.3 fL (7.9-10.8); MONOCYTES # (AUTO) 0.5 10^3/uL (0.0-1.0); MONOCYTES % (AUTO) 3.6 %; NEUTROPHILS # (AUTO) 10.9 10^3/uL (1.5-6.6); NEUTROPHILS % (AUTO) 86.5 %; PLT - PLATELET COUNT 181 10^3/uL (130-450); RED BLOOD COUNT 3.41 10^6/uL (4.20-5.40); RED CELL DISTRIBUTION WIDTH 15.1 % (12.0-15.0); WHITE BLOOD COUNT 12.6 x10^3/uL (4.8-10.8)
--- NOTE | 2020-08-15 12:06 | XRAY Report ---
PROCEDURE: Chest 1 View X-Ray INDICATIONS: Chest pain TECHNIQUE: One view of the chest was acquired. COMPARISON: 02/07/2020 FINDINGS: Surgical changes and devices: None. Lungs and pleura: No pleural effusions or pneumothorax. Lungs are clear. Mediastinum: Mediastinal contours appear normal. Heart size is normal. Bones and chest wall: No suspicious bony lesions. Overlying soft tissues appear unremarkable. IMPRESSION: No acute cardiopulmonary pathology. Reviewed by: Ej Bains MD on 08/15/2020 12:04 PM PST Approved by: Ej Bains MD on 08/15/2020 12:04 PM [facility] Station ID: [id number]
[2020-08-15] MEDS ORDERED: SODIUM CHLORIDE 0.9% 1,000 ML IV STA (12:11)
[2020-08-15 12:15] LABS: INR 1.1 (0.8-1.2); PT - PROTHROMBIN TIME 12.1 secs (9.9-12.6)
[2020-08-15 12:20] LABS: ALBUMIN 4.3 g/dL (3.2-5.5); ALBUMIN/GLOBULIN RATIO 1.4 (1.0-2.2); CALCIUM 9.5 mg/dL (8.5-10.3); CREATININE 1.4 mg/dL (0.4-1.0); TOTAL PROTEIN 7.3 g/dL (6.7-8.2)
[2020-08-15] MEDS ORDERED: IOVERSOL 320 100 ML VIAL IVP ONE ×2 (12:38→16:31)
--- NOTE | 2020-08-15 13:10 | CT Report ---
PROCEDURE: ANGIO CHEST W/WO INDICATIONS: atrial fib; hx of IJ DVT. r/p PE CONTRAST: IV CONTRAST: Optiray 320 ml: 80 PO CONTRAST: *NO PO CONTRAST TECHNIQUE: After the administration of intravenous contrast, 2 mm thick sections acquired from the pulmonary api natalee to the posterior costophrenic angles. 3-dimensional maximum intensity projection (MIP) coronal a nd sagittal reformats were then acquired through the thorax. For radiation dose reduction, the follow ing was used: automated exposure control, adjustment of mA and/or kV according to patient size. COMPARISON: Single view chest 08/15/2020, 2 view chest 07/15/2013, single view chest 02/07/2020, also pr ior neck CT 09/14/2019 and soft tissue neck 10/05/2019 reviewed. FINDINGS: Image quality: Excellent. Pulmonary arteries: Pulmonary arteries are normal in size, and demonstrate no intraluminal filling d efects to suggest central pulmonary embolism. No pulmonary mass lesion is found. No evidence of pneu monia is identified. Lungs and pleura: Lungs are clear. No pleural effusions or pneumothorax. Central and peripheral ai rways are patent. Mediastinum: Heart size is normal, without pericardial effusion. No mediastinal or hilar adenopathy . Thoracic aorta is normal in caliber and enhancement. Esophagus is normal in caliber, without hiat al hernia. Bones and chest wall: No suspicious bony lesions. Ribs and thoracic spine appear intact throughout. The thyroid is again seen to be abnormal, with reference to prior chest plain film imaging and also CT neck soft tissue 09/14/2019 and soft tissue neck ultrasound 10/05/2019. There is a large right thyro id mass which has slowly enlarged over time producing greater mass impingement on the tracheal, with maximal AP and transverse dimensions of the mass measuring up to 4.7 x 6.4 cm, and with a craniocauda d dimension measuring up to 8.7 cm. This bows the tracheal airway from right to left, shifted by appr oximately 2.5 cm. There is only a mild degree of narrowing of the transverse dimension of the trachea at the middle third of the mass craniocaudad. Impending airway compromise is not seen.. No axillary or supraclavicular adenopathy. Abdomen: Visualized upper abdominal solid organs appear normal in the early arterial phase of enhanc ement. IMPRESSION: 1. No pulmonary embolus found. No pneumonia or pulmonary mass lesion seen. 2. There is a large right thyroid mass, measuring up to 4.7 x 6.4 x 8.7 cm which has slowly enlarged over time from an early chest plain film in 2013 to the most recent CT scanning through this area 09/03. This mass deviates the tracheal air column leftward, mildly narrows the transverse dimension of the trachea, and presumably has been previously evaluated by ENT surgical consultation. If not, ahn ch consultation is recommended given likelihood of continued growth over time and progression of trac heal air column compromise.. Reviewed by: Brayan Rodney MD on 08/15/2020 1:09 PM PST Approved by: Brayan Rodney MD on 08/15/2020 1:09 PM PST Station ID: [id number]
[2020-08-15 14:11] VITALS: BP 150/64
== END 2020-08-15 14:16 | disposition home or self-care (01) ==
LOC: ED 11:22
DX: I48.91 Unspecified atrial fibrillation (principal); C90.00 Multiple myeloma not having achieved remission; E07.89 Other specified disorders of thyroid; I10 Essential (primary) hypertension; Z87.891 Personal history of nicotine dependence; Z86.718 Personal history of other venous thrombosis and embolism
CPT/HCPCS: 80053; 83690; 84443; 84484; 85025; 85610; 93005; 96360; 99284

== ENCOUNTER 2020-10-05 09:04 | Outpatient (CLI) | payer MEDICARE, OTHER ==
--- OUTSIDE RECORDS SUMMARY | 2020-10-10 01:38 | EXTERNAL MEDICAL SUMMARY RPT | Continuity of Care Document ---
:1945 Demographics Phone Unavailable Preferred Language Unknown Marital Status Unknown Advent Affiliation Unknown Race Unknown Ethnic Group Unknown Author Organization [facility] Address [address] [place] [address] Phone Social History date description facility [id number]
== END 2020-10-05 09:05 | disposition home or self-care (01) ==
LOC: DI 09:04
PROVIDERS: ATTEND Internal Medicine
DX: I48.91 Unspecified atrial fibrillation (principal); I49.3 Ventricular premature depolarization; I07.1 Rheumatic tricuspid insufficiency
CPT/HCPCS: 93306

== ENCOUNTER 2020-10-08 16:03 | Outpatient (CLI) | payer MEDICARE, OTHER ==
--- NOTE | 2020-10-08 17:48 | Ultrasound Report ---
PROCEDURE: Head or Neck Soft Tissue INDICATIONS: THYROID MASS OR NODULE, THYROID HYPERTROPHY TECHNIQUE: Real-time scanning was performed of the thyroid gland, with image documentation. COMPARISON: 10/05/2019 FINDINGS: Right: Thyroid lobe measures 8.6 x 2.9 x 3.8 cm, and is homogeneous in echotexture. Left: Thyroid lobe measures 3.9 x 0.9 x 1.1 cm, and is homogenous in echotexture. Isthmus: 3 mm thick. Nodule number: One Location: Right inferior thyroid lobe Size: 7.8 x 3.8 x 6.5 cm. Previously measured 7.1 x 3.2 x 5.6 cm Composition: Predominantly solid Echogenicity: Hypoechoic Shape: wider than tall. Margins: Irregular Echogenic foci: Macrocalcifications are seen Total points: 6 ACR TI-RADS category: 4, moderately suspicious Nodule number: Two Location: Lower pole of left thyroid lobe Size: 0.5 x 0.3 x 0.5 cm. Not seen on previous study Composition: Spongiform Echogenicity: Hypoechoic Shape: wider than tall. Margins: Smooth Echogenic foci: None Total points: 3 ACR TI-RADS category: 3 mildly suspicious. IMPRESSION: Interval increase in size of patient's known moderately suspicious large right inferior thyroid lobe nodule as described above, suggest fine-needle aspiration of this nodule for more defini tive diagnosis if it has not been done before. ACR TI-RADS definitions and recommendations: TI-RADS 1 (benign): 0 points. FNA not needed. TI-RADS 2 (not suspicious): 2 points. FNA not needed. TI-RADS 3 (mildly suspicious): 3 points. ? FNA if 2.5 cm or larger, follow up if 1.5 cm or larger (at 1, 3, and 5 years). TI-RADS 4 (moderately suspicious): 4-6 points. ? FNA if 1.5 cm or larger, follow up if 1 cm or larger (at 1, 2, 3, and 5 years). TI-RADS 5 (highly suspicious): 7 points or more. ? FNA if 1 cm or larger, follow up if 0.5 cm or larger (every year for 5 years). Reviewed by: Ej Bains MD on 10/08/2020 5:47 PM PDT Approved by: Ej Bains MD on 10/08/2020 5:47 PM PDT Station ID: [id number]
== END 2020-10-08 16:04 | disposition home or self-care (01) ==
LOC: DI 16:03
PROVIDERS: ATTEND Otolaryngology
DX: E04.2 Nontoxic multinodular goiter (principal); C90.00 Multiple myeloma not having achieved remission

== ENCOUNTER 2020-10-29 11:41 | Outpatient (CLI) | payer MEDICARE, OTHER ==
[2020-10-29] MEDS ORDERED: BUFFERED LIDOCAINE 10 ML SYRINGE ONE (11:55)
[2020-10-29] MEDS ORDERED: BUFFERED LIDOCAINE 10 ML SYRINGE IU ONE (15:54)
--- NOTE | 2020-10-29 17:31 | Ultrasound Report ---
PROCEDURE: FNA Bx w/US Gnd 1st les INDICATIONS: THYROID NODULE TECHNIQUE: The indications, alternatives, benefits, risks, and complications of the procedure were explained to the patient. Written informed consent was obtained and placed in the chart. The area of interest wa s examined sonographically and a site was chosen for ultrasound guided percutaneous sampling. The sk in was prepared and draped in the usual fashion, and anesthetized with 1% lidocaine infiltrated from the skin down to the lesion. Multiple passes were then performed, with contents emptied into an appr [facility] pathology specimen container. A bandage was applied to the area of access at completion of t he study. COMPARISON: None. FINDINGS: Location(s) of lesion(s) sampled: Right thyroid lobe. [place]: 25 gauge hypodermic needles. Number of passes: 6 Medications: 1% lidocaine for local anaesthesia. Complications: None. IMPRESSION: Successful ultrasound-guided right-sided thyroid nodule fine needle aspiration, with cytology results pending. Reviewed by: Brayan Rodney MD on 10/29/2020 5:29 PM PDT Approved by: Brayan Rodney MD on 10/29/2020 5:29 PM PDT Station ID: [id number]
== END 2020-10-29 11:42 | disposition home or self-care (01) ==
LOC: DI 11:41
PROVIDERS: ATTEND Internal Medicine
DX: E04.1 Nontoxic single thyroid nodule (principal)
CPT/HCPCS: 10005; 88173; 88305

== ENCOUNTER 2020-11-19 14:30 | Outpatient (CLI) | payer MEDICARE, OTHER ==
--- NOTE | 2020-11-19 16:27 | Ultrasound Report ---
PROCEDURE: Duplex Ext Veins Left INDICATIONS: Left leg edema, left leg pain TECHNIQUE: Real-time imaging, as well as color and pulse Doppler interrogation, were performed of the lower extr emity deep veins from the inguinal ligament to the popliteal fossa. COMPARISON: None. FINDINGS: The deep veins are normally compressible, and free of intraluminal thrombus. Color and pu lse Doppler demonstrate normal phasic intraluminal flow. There is normal augmentation response to di stal compression maneuver. IMPRESSION: No sonographic evidence of DVT. Reviewed by: Eben Castaneda MD on 11/19/2020 4:26 PM PDT Approved by: Eben Castaneda MD on 11/19/2020 4:26 PM PDT Station ID: [id number]
== END 2020-11-19 14:31 | disposition home or self-care (01) ==
LOC: DI 14:30
PROVIDERS: ATTEND Internal Medicine
DX: R60.0 Localized edema (principal); M79.605 Pain in left leg

== ENCOUNTER 2021-07-09 09:55 | Outpatient (CLI) | payer MEDICARE, OTHER ==
[2021-07-09 10:57] LABS: CALCIUM 9.2 mg/dL (8.5-10.3); CREATININE 1.3 mg/dL (0.4-1.0); MAGNESIUM 2.3 mg/dL (1.7-2.8); PHOSPHORUS 3.8 mg/dL (2.5-4.6); URIC ACID 5.8 mg/dL (2.6-7.2)
== END 2021-07-09 09:56 | disposition home or self-care (01) ==
LOC: LAB 09:55
PROVIDERS: ATTEND Internal Medicine Nephrology
DX: N18.32 Chronic kidney disease, stage 3b (principal)
CPT/HCPCS: 36415; 80048; 81001; 81003; 82043; 82306; 83735; 83970; 84100; 84550; 87086

== ENCOUNTER 2021-07-10 13:10 | Outpatient (CLI) | payer MEDICARE, OTHER ==
[2021-07-10 13:26] LABS: BILIRUBIN,URINE NEGATIVE (NEGATIVE); GLUCOSE, URINE (UA) NEGATIVE (NEGATIVE); KETONES,URINE (UA) NEGATIVE (NEGATIVE); LEUKOCYTE ESTERASE, URINE NEGATIVE (NEGATIVE); NITRITE,URINE NEGATIVE (NEGATIVE); OCCULT BLOOD,URINE NEGATIVE (NEGATIVE); PH,URINE 5.5 PH (5.0-7.5); PROTEIN,URINE NEGATIVE (NEGATIVE); UROBILINOGEN,URINE 0.2 (NORMAL) E.U./dL (NORMAL)
[2021-07-10 13:33] LABS: CLARITY,URINE CLEAR (CLEAR)
[2021-07-10 15:05] LABS: BACTERIA,URINE Rare /HPF (None Seen); RBC,URINE 0-5 /HPF (0-5); SQUAMOUS EPITHELIAL CELL,UR RARE Squamous (<= Few); WBC,URINE 0-3 /HPF (0-5)
[2021-07-10 15:06] LABS: MUCUS,URINE Few Strands
== END 2021-07-10 13:11 | disposition home or self-care (01) ==
LOC: LAB 13:10
PROVIDERS: ATTEND Internal Medicine Nephrology
DX: N18.32 Chronic kidney disease, stage 3b (principal)
CPT/HCPCS: 81001; 87086

== ENCOUNTER 2021-09-10 11:17 | Outpatient (CLI) | payer MEDICARE, OTHER ==
--- NOTE | 2021-09-11 07:17 | Mammography Report ---
BILATERAL DIGITAL SCREENING MAMMOGRAM 3D/2D: 09/10/2021 CLINICAL: Routine screening. Comparison is made to exams dated: 11/26/2018 mammogram, 10/28/2017 mammogram, 09/04/2016 mammogram, and 02/21/2014 mammogram - [facility]. There are scattered fibroglandular elements in both breasts. No significant masses, calcifications, or other findings are seen in either breast. There has been no significant interval change. IMPRESSION: NEGATIVE There is no mammographic evidence of malignancy. A 1 year screening mammogram is recommended. This exam was interpreted at Station ID: [id number]. NOTE: For mammograms, a report in lay terms will be sent to the patient. Approximately 15% of breast malignancies will not be visualized mammographically. In the management of a palpable breast mass, a negative mammogram must not discourage biopsy of a clinically suspicious lesion. Electronically Signed By: Barber Yates M.D. slc/penrad:09/10/2021 14:16:37 ACR BI-RADS Category 1: Negative 3341F PARENCHYMAL PATTERN: (A) - The breast(s) demonstrate(s) scattered fibroglandular densities. BI-RADS CATEGORY: (1) - 1 RECOMMENDATION: (ANNUAL) - Recommend routine annual screening mammography. [id number] 1 year screening LATERALITY: (B)
== END 2021-09-10 11:18 | disposition home or self-care (01) ==
LOC: DI.N 11:17
PROVIDERS: ATTEND Internal Medicine
DX: Z12.31 Encounter for screening mammogram for malignant neoplasm of breast (principal)

== ENCOUNTER 2022-01-21 11:40 | Outpatient (CLI) | payer MEDICARE, OTHER ==
[2022-01-21 12:20] LABS: BILIRUBIN,URINE NEGATIVE (NEGATIVE); GLUCOSE, URINE (UA) NEGATIVE (NEGATIVE); KETONES,URINE (UA) NEGATIVE (NEGATIVE); LEUKOCYTE ESTERASE, URINE NEGATIVE (NEGATIVE); NITRITE,URINE NEGATIVE (NEGATIVE); OCCULT BLOOD,URINE NEGATIVE (NEGATIVE); PH,URINE 5.5 PH (5.0-7.5); PROTEIN,URINE NEGATIVE (NEGATIVE); UROBILINOGEN,URINE 0.2 (NORMAL) E.U./dL (NORMAL)
[2022-01-21 12:27] LABS: CALCIUM 9.3 mg/dL (8.5-10.3); CREATININE 1.3 mg/dL (0.4-1.0); MAGNESIUM 2.4 mg/dL (1.7-2.8); PHOSPHORUS 3.9 mg/dL (2.5-4.6); POTASSIUM 4.3 mmol/L (3.5-5.0); URIC ACID 5.8 mg/dL (2.6-7.2)
[2022-01-21 12:39] LABS: CLARITY,URINE CLEAR (CLEAR)
[2022-01-21 12:49] LABS: CREATININE,URINE 24.9 mg/dL
[2022-01-21 12:54] LABS: MICROALBUMIN,URINE < 0.2 mg/dL (0-300.0)
[2022-01-21 13:04] LABS: BACTERIA,URINE Rare /HPF (None Seen); RBC,URINE 0-5 /HPF (0-5); SQUAMOUS EPITHELIAL CELL,UR RARE Squamous (<= Few); WBC,URINE 0-3 /HPF (0-5)
== END 2022-01-21 11:41 | disposition home or self-care (01) ==
LOC: LAB 11:40
PROVIDERS: ATTEND Internal Medicine Nephrology
DX: N18.32 Chronic kidney disease, stage 3b (principal)
CPT/HCPCS: 36415; 80048; 81001; 82043; 82306; 82570; 83735; 83970; 84100; 84550; 87086

== ENCOUNTER 2022-08-13 08:16 | Outpatient (CLI) | payer MEDICARE, OTHER ==
[2022-08-13 08:57] LABS: CHOL/HDL RATIO 2.2 (<4.4); CHOLESTEROL 131 mg/dL; HDL CHOLESTEROL 60 mg/dL; LDL CHOLESTEROL,CALCULATED 16 mg/dL; LDL/HDL RATIO 0.3 (<4.4); TRIGLYCERIDES 277 mg/dL; VLDL CHOLESTEROL 55 mg/dL
[2022-08-13 20:50] LABS: ESTIMATED AVERAGE GLUCOSE 123 mg/dL (70-100); HEMOGLOBIN A1c% 5.9 % (4.27-6.07)
== END 2022-08-13 08:17 | disposition home or self-care (01) ==
LOC: LAB 08:16
PROVIDERS: ATTEND Internal Medicine
DX: Z00.00 Encounter for general adult medical examination without abnormal findings (principal); N17.9 Acute kidney failure, unspecified; I48.91 Unspecified atrial fibrillation; I12.9 Hypertensive chronic kidney disease with stage 1 through stage 4 chronic kidney disease, or unspecified chronic kidney disease; N18.9 Chronic kidney disease, unspecified; K21.9 Gastro-esophageal reflux disease without esophagitis; H91.90 Unspecified hearing loss, unspecified ear; E78.5 Hyperlipidemia, unspecified; E03.9 Hypothyroidism, unspecified; R73.01 Impaired fasting glucose; I73.00 Raynaud's syndrome without gangrene; E04.1 Nontoxic single thyroid nodule
CPT/HCPCS: 36415; 80061; 81599; 83036; 83721; 83735; 84443

== ENCOUNTER 2022-09-09 09:34 | Outpatient (CLI) | payer MEDICARE, OTHER ==
--- NOTE | 2022-09-10 12:36 | Mammography Report ---
BILATERAL DIGITAL SCREENING MAMMOGRAM 3D/2D: 09/09/2022 CLINICAL: Routine screening. Comparison is made to exams dated: 09/10/2021 mammogram, 11/26/2018 mammogram, 10/28/2017 mammogram, 09/04 mammogram, and 02/21/2014 mammogram - [facility]. Both breasts are almost entirely fatty (category a/<25% glandular tissue). No significant masses, calcifications, or other findings are seen in either breast. There has been no significant interval change. IMPRESSION: NEGATIVE There is no mammographic evidence of malignancy. A 1 year screening mammogram is recommended. Based on the Tyrer Cuzick model (a risk assessment model) the patients lifetime risk is 1.6% and her 10 year risk is 0.0%. According to the ACR, ACS, and NCCN guidelines, an annual breast MRI exam manisha g with mammogram is recommended if the patients lifetime risk is 20% or greater. This exam was interpreted at Station ID: [id number]. NOTE: For mammograms, a report in lay terms will be sent to the patient. Approximately 15% of breast malignancies will not be visualized mammographically. In the management of a palpable breast mass, a negative mammogram must not discourage biopsy of a clinically suspicious lesion. Electronically Signed By: Mariana pineda/karlie:09/10/2022 08:00:51 letter sent: No_Letter ACR BI-RADS Category 1: Negative 3341F PARENCHYMAL PATTERN: (F) - The breast(s) demonstrate(s) diffuse fatty replacement. BI-RADS CATEGORY: (1) - 1 Mammogram [id number] 1 year screening LATERALITY: (B)
== END 2022-09-09 09:35 | disposition home or self-care (01) ==
LOC: DI 09:34
PROVIDERS: ATTEND Internal Medicine
DX: Z12.31 Encounter for screening mammogram for malignant neoplasm of breast (principal)

== ENCOUNTER 2022-12-12 06:46 | Day surgery (SDC) | payer MEDICARE, OTHER ==
[2022-12-12] MEDS ORDERED: LACTATED RINGERS 1,000 ML IV ONE ×2 (07:14→09:19)
--- NOTE | 2022-12-12 07:27 | ANESTHESIA ---
Pre-Anesthesia VS, & Labs - Diagnosis screening - Procedure colonoscopy Vital Signs: Temp Pulse Resp BP Pulse Ox O2 Flow Rate 36.0 C L 71 16 152/62 H 100 12/12/22 07:04 12/12/22 07:04 12/12/22 07:04 12/12/22 07:04 12/12/22 07:04 Height: 5 ft 6 in Weight (kg): 70 kg Body Mass Index: 24.9 BMI Classification: Normal - NPO >8 hours Last Fluid Intake: am prep - Is Patient ?: No - Lab Results Lab results reviewed: Yes Home Medications and Allergies Home Medications: Ambulatory Orders Apixaban [Eliquis] 1 tab PO DAILY 12/11/22 Famotidine [Pepcid] 1 tab PO DAILY 12/11/22 Fluconazole 1 tab PO DAILY 12/11/22 Fluticasone Propion/Salmeterol [Wixela 100-50 Inhub] 1 inhaler INH BID 12/11/22 Fluticasone/Salmeterol [Advair 100-50 Diskus] 1 puffs INH DAILY 12/11/22 Furosemide [Lasix] 1 tab PO DAILY 12/11/22 Metoprolol Succinate [Toprol Xl] 1 tab PO DAILY 12/11/22 Rosuvastatin Calcium [Crestor] 1 tab PO DAILY 12/11/22 Albuterol [Ventolin Hfa] 1 puffs INH QID PRN 01/06/15 estradioL [Estrace] 1 - 2 gr VG DAILY PRN 10/03/19 Lisinopril [Zestril] 20 mg PO DAILY 12/25/21 Cholecalciferol (Vitamin D3) [Vitamin D3] 2,000 mcg PO DAILY 02/05/22 Levothyroxine [Synthroid] 50 mcg PO QDAC 08/27/22 Apixaban [Eliquis] 1 tab PO DAILY 12/11/22 Famotidine [Pepcid] 1 tab PO DAILY 12/11/22 Fluconazole 1 tab PO DAILY 12/11/22 Fluticasone Propion/Salmeterol [Wixela 100-50 Inhub] 1 inhaler INH BID 12/11/22 Fluticasone/Salmeterol [Advair 100-50 Diskus] 1 puffs INH DAILY 12/11/22 Furosemide [Lasix] 1 tab PO DAILY 12/11/22 Metoprolol Succinate [Toprol Xl] 1 tab PO DAILY 12/11/22 Rosuvastatin Calcium [Crestor] 1 tab PO DAILY 12/11/22 Allergies/Adverse Reactions: Allergies Allergy/AdvReac Type Severity Reaction Status Date / Time ranitidine Allergy Unknown Verified 04/30/22 16:09 Sulfa (Sulfonamide Allergy Hives Verified 04/30/22 16:09 Antibiotics) Anes History & Medical History - Anesthetic History Anesthesia Complications: reports: No previous complications Family history of Anesthesia Complications: Denies Family history of Malignant Hyperthermia: Denies - Medical History Cardiovascular: reports: Hypertension, High cholesterol, Atrial fibrillation ( Hx, NSR for years) Pulmonary: reports: Asthma Gastrointestinal: reports: None Urinary: reports: None Musculoskeletal: reports: None Endocrine/Autoimmune: reports: HyPERthyroidism Skin: reports: None Smoking Status: Former smoker - Surgical History General: reports: Appendectomy, Colonoscopy, Other Eyes Ears Nose Throat (EENT): reports: Other Orthopedic: Exam General: Alert, Oriented x3, Cooperative Dental: WNL Mouth Openin Fingerbreadth Neck Mobility: Normal Mallampati classification: II Thyromental Distance: 4-6 cm Respiratory: Lungs clear, Normal breath sounds, No respiratory distress Cardiovascular: Regular rate Neurological: Normal speech Mental/Cognitive Status: Alert/Oriented X3, Normal for patient Cognitive Status: Within normal limits Plan Anesthesia Type: Total IV Consent for Procedure(s) Verified and Reviewed: Yes Code Status: Attempt Resuscitation ASA classification: 3-Severe systemic disease Is this case an emergency?: No
[2022-12-12] MEDS ORDERED: PROPOFOL 500 MG/50 ML 500 MG/50 ML VIAL ONE (08:04)
[2022-12-12] MEDS ORDERED: MIDAZOLAM 2 MG/2 ML VIAL ONE (08:09)
[2022-12-12] MEDS ORDERED: ePHEDrine 50 MG/ML VIAL IVP ONE (08:46)
[2022-12-12] MEDS ORDERED: PROPOFOL 200 MG/20 ML VIAL IVP ONE (09:05)
[2022-12-12 09:55] VITALS: BP 153/72
--- NOTE | 2022-12-12 11:21 | ANESTHESIA POST OP EVALUATION ---
Anesthesia Post Eval - Post Anesthesia Eval Vitals: Last Vital Signs Temp 36.6 C 12/12/22 09:50 Pulse 84 12/12/22 09:50 Resp 16 12/12/22 09:50 BP 153/72 H 12/12/22 09:50 Pulse Ox 99 12/12/22 09:50 O2 Flow Rate CV Function Including HR & BP: Stable Pain Control: Satisfactory Nausea & Vomiting: Negative Mental Status: Baseline Respiratory Status: Airway Patent Hydration Status: Satisfactory Anesthesia Complications: None
== END 2022-12-12 06:47 | disposition home or self-care (01) ==
LOC: SDS 06:46
PROVIDERS: ATTEND Surgery
PROC: 0DBK8ZZ Excision of Ascending Colon, Via Natural or Artificial Opening Endoscopic (ICD-10-PCS; principal; 2022-12-12 08:00)
DX: Z12.11 Encounter for screening for malignant neoplasm of colon (principal); D12.2 Benign neoplasm of ascending colon; K57.30 Diverticulosis of large intestine without perforation or abscess without bleeding; I48.91 Unspecified atrial fibrillation; J45.909 Unspecified asthma, uncomplicated; Z79.01 Long term (current) use of anticoagulants
CPT/HCPCS: 45380; J7120

== ENCOUNTER 2022-12-16 08:57 | Outpatient (CLI) | payer MEDICARE, OTHER ==
[2022-12-16 09:37] LABS: CALCIUM 8.9 mg/dL (8.5-10.3); CREATININE 1.8 mg/dL (0.4-1.0); MAGNESIUM 2.3 mg/dL (1.7-2.8); POTASSIUM 4.4 mmol/L (3.5-5.0)
[2022-12-16 15:11] LABS: CREATININE,URINE 73.2 mg/dL; MICROALBUM/CREATININE RATIO,UR 4.1 ug/mg (<30.0); MICROALBUMIN,URINE 0.3 mg/dL (0-300.0)
== END 2022-12-16 08:58 | disposition home or self-care (01) ==
LOC: LAB 08:57
PROVIDERS: ATTEND Internal Medicine Nephrology
DX: N18.32 Chronic kidney disease, stage 3b (principal)
CPT/HCPCS: 36415; 80048; 82043; 82306; 82570; 83735; 83970

== ENCOUNTER 2023-01-05 08:38 | Outpatient (CLI) | payer MEDICARE, OTHER ==
[2023-01-05 09:04] LABS: CALCIUM 8.6 mg/dL (8.5-10.3); CREATININE 1.4 mg/dL (0.4-1.0); PHOSPHORUS 3.6 mg/dL (2.5-4.6); POTASSIUM 4.2 mmol/L (3.5-5.0)
== END 2023-01-05 08:39 | disposition home or self-care (01) ==
LOC: LAB 08:38
PROVIDERS: ATTEND Internal Medicine Nephrology
DX: N17.9 Acute kidney failure, unspecified (principal); E55.9 Vitamin D deficiency, unspecified; N18.9 Chronic kidney disease, unspecified; M89.9 Disorder of bone, unspecified
CPT/HCPCS: 36415; 80048; 82306; 84100

== ENCOUNTER 2023-03-13 08:32 | Outpatient (CLI) | payer MEDICARE, OTHER ==
[2023-03-13 09:30] LABS: CREATININE,URINE 68.3 mg/dL; MICROALBUMIN,URINE 1.3 mg/dL
== END 2023-03-13 08:33 | disposition home or self-care (01) ==
LOC: LAB 08:32
PROVIDERS: ATTEND Internal Medicine Nephrology
DX: N18.32 Chronic kidney disease, stage 3b (principal)
CPT/HCPCS: 36415; 82043; 82570; 83735; 83970

== ENCOUNTER 2023-10-18 11:53 | Outpatient (CLI) | payer MEDICARE, OTHER | END 2023-10-18 11:54 | disposition home or self-care (01) | LOC: LAB 11:53 | PROVIDERS: ATTEND Internal Medicine Nephrology | DX: N18.32 Chronic kidney disease, stage 3b (principal) | CPT/HCPCS: 82043; 82570 ==

== ENCOUNTER 2023-10-19 08:15 | Outpatient (CLI) | payer MEDICARE, OTHER ==
[2023-10-19 08:29] LABS: BASOPHILS # (AUTO) 0.1 10^3/uL (0.0-0.1); BASOPHILS % (AUTO) 2.1 %; EOSINOPHILS # (AUTO) 0.1 10^3/uL (0.0-0.7); EOSINOPHILS % (AUTO) 2.1 %; HCT - HEMATOCRIT 36.4 % (37.0-47.0); HGB - HEMOGLOBIN 11.4 g/dL (12.0-16.0); LYMPHOCYTES # (AUTO) 1.4 10^3/uL (1.5-3.5); LYMPHOCYTES % (AUTO) 36.1 %; MEAN CORPUSCULAR HEMOGLOBIN 30.3 pg (27.0-31.0); MEAN CORPUSCULAR HGB CONC 31.3 g/dL (32.0-36.0); MEAN CORPUSCULAR VOLUME 96.8 fL (81.0-99.0); MEAN PLATELET VOLUME 10.6 fL (7.9-10.8); MONOCYTES # (AUTO) 0.4 10^3/uL (0.0-1.0); NEUTROPHILS # (AUTO) 1.9 10^3/uL (1.5-6.6); NEUTROPHILS % (AUTO) 48.4 %; PLT - PLATELET COUNT 187 10^3/uL (130-450); RED BLOOD COUNT 3.76 10^6/uL (4.20-5.40); RED CELL DISTRIBUTION WIDTH 13.6 % (12.0-15.0); WHITE BLOOD COUNT 3.8 x10^3/uL (4.8-10.8)
[2023-10-19 08:36] LABS: CREATININE,URINE 71.9 mg/dL
[2023-10-19 08:48] LABS: MICROALBUMIN,URINE < 0.7 mg/dL
[2023-10-19 08:49] LABS: ALBUMIN 4.1 g/dL (3.2-5.5); CALCIUM 9.6 mg/dL (8.5-10.3); CREATININE 1.3 mg/dL (0.6-1.3); PHOSPHORUS 3.7 mg/dL (2.5-5.0); POTASSIUM 4.4 mmol/L (3.5-4.5)
== END 2023-10-19 08:16 | disposition home or self-care (01) ==
LOC: LAB 08:15
PROVIDERS: ATTEND Internal Medicine Nephrology
DX: N18.32 Chronic kidney disease, stage 3b (principal)
CPT/HCPCS: 36415; 80048; 82040; 82043; 82306; 82570; 83735; 83970; 84100; 85025